=== PATIENT | male | born 1955 | race Caucasian/White ===

== ENCOUNTER 2022-12-08 04:48 | Emergency (ER) | payer OTHER, SELFPAY ==
[2022-12-08 04:49] VITALS: BP 218/128; PULSE 83; RESP 19; TEMP 37; O2SAT 89; BMI 42.1
--- NOTE | 2022-12-08 04:58 | EKG12_ITS ---
Test Reason : Dysrhythmia Blood Pressure : / mmHG Vent. Rate : 082 BPM Atrial Rate : 082 BPM P-R Int : 172 ms QRS Dur : 100 ms QT Int : 364 ms P-R-T Axes : 032 005 007 degrees QTc Int : 425 ms Normal sinus rhythm Septal infarct , age undetermined Abnormal ECG Confirmed by JAQUAN WRIGHT ([id number]), website/blog editor SAHIL BRANNON ([id number]) on 12/11/2022 8:16:51 AM Referred By: Confirmed By:JAQUAN WRIGHT
--- NOTE | 2022-12-08 05:00 | RAD_ITS ---
EXAM: XR CHEST, 1 VIEW CLINICAL INDICATION: ams ams TECHNIQUE: Frontal view of the chest. COMPARISON: CT scan brain done today. FINDINGS: LUNGS AND PLEURAL SPACES: Unremarkable. No consolidation or edema. No pneumothorax. No effusion. HEART: Unremarkable. Cardiac silhouette not enlarged. MEDIASTINUM: There is suggestion of a small hiatal hernia. BONES/JOINTS: Unremarkable. SOFT TISSUES: Unremarkable. RAD/Chest 1 View (Portable) IMPRESSION: No acute findings in the chest. Electronically Signed: Jas Greene MD at 5:48 EDT Reading Location ID and State: [facility] / [place] , Service support ,
--- NOTE | 2022-12-08 05:00 | CT_ITS ---
We are attempting to reach an attending provider to discuss findings. An addendum with communication details will be sent when the communication is complete. EXAM: CT HEAD WITHOUT INTRAVENOUS CONTRAST CLINICAL INDICATION: ams ams TECHNIQUE: Multiple axial images were obtained of the head without intravenous contrast. This CT exam was performed using one or more of the following dose reduction techniques: automated exposure control, adjustment of the mA and/or kV according to patient size, and/or use of iterative reconstruction technique. RADIATION DOSE: CTDIvol = 44.99 mGy, DLP = 880.47 mGy-cm COMPARISON: No relevant prior studies available. FINDINGS: BRAIN AND EXTRA-AXIAL SPACES: There is a 5.3 x 4.8 x 4.8 cm region of heterogeneously decreased attenuation in the left lobe with 1.3 cm subfalcine extension into the right cerebral hemisphere. Finding is suspicious for neoplastic mass with vasogenic edema. Infectious etiology would also be a consideration.. There is mild mass effect upon the frontal horn of the left lateral ventricle. However, aside from direct extension of the lesion across the midline, there is no significant midline shift. No intra- or extra-axial hemorrhage. No evidence of acute infarct. There is preservation of the navarrete/white matter interface. Posterior fossa structures are unremarkable. No hydrocephalus. Basal cisterns are patent. BONES/JOINTS: Unremarkable. No discrete lytic or blastic abnormalities. VASCULATURE: There is atherosclerotic calcification of the vertebral and cavernous carotid arteries. SINUSES: There are polyps or retention cysts in the maxillary sinuses bilaterally as well as the left frontal sinus. There is mildly mucoperiosteal thickening in the ethmoid and sphenoid sinuses. There is no evidence for acute sinusitis. MASTOID AIR CELLS: Unremarkable. Clear. ORBITS: Visualized globes, extraocular muscles, optic nerves and retrobulbar fat appear unremarkable. CT/Brain/Head without Contrast IMPRESSION: Space-occupying lesion in the left frontal lobe with subfalcine extension and with associated vasogenic edema. Findings are suspicious for neoplastic process or, less likely, infectious process. Recommend MRI for further characterization. Electronically Signed: Jas Greene MD at 5:46 EDT ,
[2022-12-08 05:08] LABS: Absolute Lymphocyte Count 3.89 X10^3/uL (0.83-4.51); Absolute Neutrophil Count 4.1 X10^3/uL (2.0-7.7); Eosinophil# 0.62 X10^3/uL; Eosinophils% 6.4 % (0-5); Hematocrit 50.7 % (40-54); Hemoglobin 16.4 g/dL (13.0-16.5); Lymphocyte # 3.89 X10^3/ul (0.83-4.51); Lymphocyte % 39.9 % (19-41); Mean Corp Hgb Conc 32.3 g/dL (32-36); Mean Corpuscular Hgb 29.3 pg (27.0-32.0); Mean Corpuscular Volume 90.5 fL (80-94); Mean Platelet Vol. 9.8 fl (6.2-12.0); Monocyte# 0.93 X10^3/uL; Monocyte% 9.5 % (0-10); NRBC Flagged by Analyzer 0 % (0-5); Neutrophil # 4.08 X10^3/uL (2.7-7.7); Platelet Count 309 K/mm3 (150-450); RBC Distribution Width CV 13.1 % (11.6-14.6); RBC Distribution Width SD 43.7 fl (35.1-43.9); White Blood Count 9.7 K/mm3 (4.4-11.0)
[2022-12-08 05:15] VITALS: BP 190/118
[2022-12-08] MEDS: Labetalol (Prefilled) 20 MG/4 ML IV (05:15)
[2022-12-08 05:40] LABS: Alcohol, Blood (Medical)-Serum < 3.0 mg/dL
[2022-12-08 05:42] LABS: AST(SGOT) 20 U/L (15-37); Alanine Aminotransfer ALT/SGPT 52 U/L (16-61); Albumin, Serum 3.8 g/dL (3.2-5.0); Alkaline Phosphatase 80 U/L (45-117); Anion Gap 13 (5-15); BUN 21 mg/dL (7-18); BUN/Creat Ratio 17.1 RATIO (10-20); Calcium,Total 8.7 mg/dL (8.5-10.1); Chloride 102 mmol/L (98-107); Creatinine, Serum 1.23 mg/dL (0.70-1.30); EST Glomerular Filtration Rate 63 mL/min (>60); Est Glom Filt Rate - Afr Amer 76 mL/min (>60); Estimated Creatinine Clearance 53.31 ml/min; Globulin 3.7 g/dL (2.2-4.2); Glucose 176 mg/dL (74-106); Potassium 3.8 mmol/L (3.5-5.1); Protein, Total 7.5 g/dL (6.4-8.2); Sodium Level 138 mmol/L (136-145); Troponin-I HS (w/2H Reflex) 8 pg/mL (3.0-78.0)
[2022-12-08 05:46] VITALS: BP 163/109; PULSE 72; RESP 21; O2SAT 94
[2022-12-08 06:00] VITALS: BP 152/96; PULSE 73; RESP 28; O2SAT 95
--- NOTE | 2022-12-08 06:04 | ED.RN ---
[facility] called they are wait listing at this time [facility] called they are wait listing at this time [facility] called at this time. Transfer center speaking to Dr. Reyes at this time
[2022-12-08] MEDS: dexAMETHasone 10 MG/ML Vial IV (06:16)
--- NOTE | 2022-12-08 06:50 | EX.ED.DYSGE1 ---
HPI History of Present Illness Chief Complaint: Seizure Narrative Narrative: 67-year-old male presenting for evaluation. He is coming from his hotel room. Apparently he is in town from [place] to see family to celebrate his family members remission of cancer and he went back to his hotel room last evening with his and was normal at bedtime. Apparently the woke up and found him shaking twitching his arms and legs and confused. Did urinate on his cell. No history of seizure. No history of trauma. Patient is hypertensive on arrival at 218/128. He states his blood pressure is usually normal. He is not sure what happened. He is awake and alert and talking to me. He states he has no other symptoms at this time. Patient states he only take something for high blood pressure and hyperlipidemia. [facility] Medical History Hyperlipemia Hypertension Home Medications rosuvastatin 20 mg tablet (Crestor) 20 mg PO DAILY 12/08/22 [History Last Taken Unknown] Allergy/AdvReac Type Severity Reaction Status Date / Time No Known Allergies Allergy Verified 12/08/22 05:14 Social History Smoking Status: Never smoker ROS ROS ED Constitutional Constitutional ED: Denies chills or fever(s) Eyes Eyes: Denies change in vision or diplopia ENT ENT ED: Denies rhinorrhea or sore throat Cardiovascular Cardiovascular: Denies chest pain or palpitations Respiratory/Chest Respiratory/Chest: Denies cough or dyspnea Gastrointestinal Gastrointestinal: Denies abdominal pain, nausea or vomiting Genitourinary Genitourinary ED: Denies dysuria or hematuria Musculoskeletal Musculoskeletal: Denies arthralgias Integumentary Denies abscess or Abrasions Neurologic Neurologic: Denies headache(s) or paresthesias Psychiatric Psychiatric: Denies anxiety or depression EXAM Physical Exam Const Vital Signs: 12/08/22 04:49 12/08/22 05:15 12/08/22 05:46 Temperature 98.6 F Temperature Source Oral Pulse Rate 83 72 Respiratory Rate 19 H 21 H Blood Pressure 218/128 H 190/118 H 163/109 H Blood Pressure Mean 158 142 127 Pulse Ox 89 94 Oxygen Delivery Method Room Air Nasal Cannula Oxygen Flow Rate (L/min) 2 12/08/22 06:00 Temperature Temperature Source Pulse Rate 73 Respiratory Rate 28 H Blood Pressure 152/96 H Blood Pressure Mean 114 Pulse Ox 95 Oxygen Delivery Method Nasal Cannula Oxygen Flow Rate (L/min) 2 Positive well nourished General Appearance ED: NAD HEENT Reports moist mucous membranes Eyes PERRL and EOMs intact bilaterally Neck no lymphadenopathy Chest Wall inspection of chest normal Resp normal respiratory effort and clear to auscultation bilaterally Auscultation: Negative for rales, rhonchi or wheezes Cardio regular rate and regular rhythm GI normal to inspection, nondistended, normoactive bowel sounds Neuro oriented x3, CN's II-XII intact bilaterally and no sensory deficits noted Neuro Narrative: No focal neurologic deficits or lateralizing signs or symptoms. Sensorium / Orientation: alert Motor Exam: strength 5/5 throughout and general weakness Psych mental status grossly normal Skin no rashes or lesions noted and no wounds MDM MDM MDM Narrative Medical decision making narrative: Patient presenting with altered mental status which resolved. Sounds that he had a seizure at his hotel room. Differential includes hypertensive emergency, intracranial hemorrhage, CVA, malignancy, acute coronary syndrome, dehydration, electrolyte abnormalities, EtOH intoxication, seizure. Patient awake and alert but cannot recall anything that happened since yesterday. Neurologic exam is normal. Patient given 20 lab[address] is taken to CT immediately. Blood pressures come down nicely at 152/90 1:06 dose of labetalol. Patient is now becoming hypoxic. I suspect he is aspirated. Patient given Unasyn. Chest x-ray my interpretation shows no acute process however. Patient was 89% on 2 L and now is 95%. Nursing reported to me that he was off of his oxygen for about 10 minutes after he was in the restroom when he was down to 83%. CBC does not show any leukocytosis. Hemoglobin hematocrit are stable. Platelets are normal. Renal function electrolytes within normal limits. Liver enzymes are normal. High-sensitivity troponin is 8. EKG on my interpretation shows normal sinus rhythm with ventricular rate of 82 beats minute without sign of ischemic change or just arrhythmia. CT brain interpreted by the radiologist and reviewed by myself shows a space-occupying lesion in left frontal lobe with subfalcine extension and with associated vasogenic edema. Findings are suspicious for neoplastic process and less likely infectious. Patient was given 10 mg of IV Decadron. Seizure precautions were put in place. Patient was given 1500 mg of Keppra. I did call [facility] and [facility] however they are both on a wait list. I discussed case with [facility] who will accept transfer ER to ER. Family was informed of all findings. Patient transferred in stable condition. Impression: 1. Space-occupying lesion left frontal lobe 2. New onset seizure 3. Aspiration pneumonia 4. Hypertension Lab Data Attestation: I reviewed the patient's lab results. Labs: Laboratory Results - last 24 hr 12/08/22 12/08/22 05:00 05:15 WBC 9.7 RBC 5.60 Hgb 16.4 Hct 50.7 MCV 90.5 MCH 29.3 MCHC 32.3 RDW Std Deviation 43.7 RDW Coeff of Raffaele 13.1 Plt Count 309 MPV 9.8 Immature Gran % (Auto) 1.200 H Neut % (Auto) 42.0 L Lymph % (Auto) 39.9 Rush % (Auto) 9.5 Eos % (Auto) 6.4 H Baso % (Auto) 1.0 Absolute Neuts (auto) 4.1 Absolute Lymphs (auto) 3.89 Nucleated RBC % 0 Sodium 138 Potassium 3.8 Chloride 102 Carbon Dioxide 23.0 Anion Gap 13 BUN 21 H Creatinine 1.23 Estim Creat Clear Calc 53.31 Est GFR (MDRD) Af Amer 76 Est GFR (MDRD) Non-Af 63 BUN/Creatinine Ratio 17.1 Glucose 176 H Calcium 8.7 Total Bilirubin 0.60 AST 20 ALT 52 Alkaline Phosphatase 80 Troponin I High Sens 8 Total Protein 7.5 Albumin 3.8 Globulin 3.7 Albumin/Globulin Ratio 1.0 Ethyl Alcohol < 3.0 Radiography Diagnostic Testing: Clinical Impression(s) from Imaging Studies Brain CT 12/08/22 05:00 IMPRESSION: Space-occupying lesion in the left frontal lobe with subfalcine extension and with associated vasogenic edema. Findings are suspicious for neoplastic process or, less likely, infectious process. Recommend MRI for further characterization. Electronically Signed: Jas Greene MD at 5:46 EDT , ADDENDUM: 12/08/2257 IMPRESSION: Space-occupying lesion in the left frontal lobe with subfalcine extension and with associated vasogenic edema. Findings are suspicious for neoplastic process or, less likely, infectious process. Recommend MRI for further characterization. N.B. : The above Results were Read Back by Jas Greene MD to Kamar Reyes DO, and understanding confirmed on 12/08/2022 05:50:46 (ET). Electronically Signed: Jas Greene MD at 5:46 EDT , Chest X-Ray 12/08/22 05:00 IMPRESSION: No acute findings in the chest. Electronically Signed: Jas Greene MD at 5:48 EDT , Discharge Plan Triage Chief Complaint: Seizure ED Provider: Kamar Reyes Dx/Rx/DC Orders Prescriptions: No Action rosuvastatin [Crestor] 20 mg tablet 20 mg PO DAILY Primary Care Provider: Care Physician,No Primary Referrals: Care Physician,No Primary [Primary Care Provider] -
[2022-12-08 07:06] LABS: Reflex Troponin-HS? (from REC) Y
--- NOTE | 2022-12-08 07:17 | ED.RN ---
Hydralazine held due to pt BP decreased, Dr. Reyes aware. Meds wasted.
[2022-12-08 08:59] VITALS: BP 152/93; PULSE 65; RESP 18; O2SAT 95
[2022-12-08 10:06] VITALS: BP 152/93; PULSE 65; RESP 18; O2SAT 95
== END 2022-12-08 10:19 | disposition short-term general hospital (02) ==
PROVIDERS: Emergency Provider Student in an Organized Health Care Education/Training Program; Visit Provider Student in an Organized Health Care Education/Training Program
DX: G93.89 Other specified disorders of brain (principal); J69.0 Pneumonitis due to inhalation of food and vomit; R56.9 Unspecified convulsions; I10 Essential (primary) hypertension; Z79.899 Other long term (current) drug therapy
CPT/HCPCS: 70450; 71045; 80053; 82077; 84484; 85025; 93005; 99285; A4216; J0295